=== PATIENT | male | born 1960 | race American Indian/Alaskan Native ===

== ENCOUNTER 2016-12-01 21:26 | Emergency (ER) | payer OTHER ==
[2016-12-01] MEDS ORDERED: PROVENTIL IH ONE (22:50)
--- NOTE | 2016-12-01 22:54 | Emergency Department Report ---
ED Shortness of Breath HPI - General Chief Complaint: Dyspnea/Respdistress Stated Complaint: COUGH X'S 2 WEEKS Time Seen by Provider: 12/01/16 22:43 Source: patient, EMS Mode of arrival: Stretcher Limitations: No Limitations - History of Present Illness Initial Comments: Patient reports persistent cough 2 weeks. He is occasionally getting some chest discomfort due to the coughing. He reports in general being healthy. He states he is a little bit hoarse today because of feeling so much during the football game yesterday. He denies any chest pain associated with cough. EMS did note his blood pressure to be quite elevated. Patient indicates that this has not been a problem in the past however he indicates he does not have a doctor that he follows with. MD Complaint: cough, chest pain (due to cough) Onset/Timin -: week(s) Severity: moderate Pain Scale: 3 Quality: dull Consistency: intermittent Improves With: upright position Worsens With: lying flat Associated Symptoms: chest pain, cough Treatments Prior to Arrival: none - Related Data Previous Rx's Medication Instructions Recorded Last Taken Type ALBUTEROL Inhaler [ProAir HFA 2 puff IH QID PRN #1 inhalation 12/01/16 Unknown Rx Inhaler] Hydrochlorothiazide [HCTZ] 25 mg PO QDAY #30 tablet 12/01/16 Unknown Rx Allergies Allergy/AdvReac Type Severity Reaction Status Date / Time No Known Allergies Allergy Unverified 12/01/16 22:40 ED Review of Systems ROS: Stated complaint: COUGH X'S 2 WEEKS Other details as noted in HPI Constitutional: denies: chills, fever Eyes: denies: eye pain, eye discharge, vision change ENT: throat pain. denies: ear pain Respiratory: cough, shortness of breath. denies: wheezing Cardiovascular: chest pain (when coughing). denies: palpitations Endocrine: no symptoms reported Gastrointestinal: denies: abdominal pain, nausea, diarrhea Genitourinary: denies: urgency, dysuria Musculoskeletal: denies: back pain, joint swelling, arthralgia Skin: denies: rash, lesions Neurological: denies: headache, weakness, paresthesias Psychiatric: denies: anxiety, depression Hematological/Lymphatic: denies: easy bleeding, easy bruising ED Past Medical Hx - Past Medical History Hx Hypertension: Yes - Social History Smoking Status: Current Every Day Smoker Substance Use Type: Alcohol - Medications Home Medications: Home Medications Medication Instructions Recorded Confirmed Last Taken Type ALBUTEROL Inhaler [ProAir HFA 2 puff IH QID PRN #1 inhalation 12/01/16 Unknown Rx Inhaler] Hydrochlorothiazide [HCTZ] 25 mg PO QDAY #30 tablet 12/01/16 Unknown Rx ED Physical Exam - General Limitations: No Limitations General appearance: alert, in no apparent distress - Head Head exam: Present: atraumatic, normocephalic - Eye Eye exam: Present: normal appearance, PERRL. Absent: scleral icterus - ENT ENT exam: Present: normal orophraynx, mucous membranes moist, other (hoarse voice) - Neck Neck exam: Present: normal inspection - Respiratory Respiratory exam: Present: normal lung sounds bilaterally. Absent: respiratory distress - Cardiovascular Cardiovascular Exam: Present: regular rate, normal rhythm. Absent: systolic murmur, diastolic murmur, rubs, gallop - GI/Abdominal GI/Abdominal exam: Present: soft, normal bowel sounds. Absent: tenderness, pulsatile mass - Rectal Rectal exam: Present: deferred - Extremities Exam Extremities exam: Present: normal inspection. Absent: pedal edema, calf tenderness - Back Exam Back exam: Present: normal inspection - Neurological Exam Neurological exam: Present: alert, oriented X3 - Psychiatric Psychiatric exam: Present: normal affect, normal mood - Skin Skin exam: Present: warm, dry, intact, normal color. Absent: rash ED Course Vital Signs 12/01/16 23:08 Temperature 97.6 F - Reevaluation(s) Reevaluation #1: 12/01/16 23:11 Chest x-ray is negative here. Patient subjectively reports improvement after nebulized treatment. I suspect bronchitis clinically. I do feel he needs ongoing medical attention for chronic management. I did encourage smoking cessation. Will start on hydrochlorothiazide for his elevated blood pressure. He does agree to follow up with physician as well as check his blood pressure routinely. ED Medical Decision Making - Radiology Data interpreted by me: Normal cardiac silhouette no mediastinal widening no infiltrate. Critical care attestation.: If time is entered above; I have spent that time in minutes in the direct care of this critically ill patient, excluding procedure time. ED Disposition Clinical Impression: Bronchitis Hypertension Qualifiers: Hypertension type: essential hypertension Qualified Code(s): I10 - Essential ( primary) hypertension Disposition: DISCHARGED TO HOME OR SELFCARE Is pt being admited?: No Does the pt Need Aspirin: No Condition: Stable Instructions: Hypertension (ED), Acute Bronchitis (ED) Additional Instructions: Stop smoking. Follow-up healthy lifestyle. Eat a healthy diet. Be involved in a routine exercise program. Prescriptions: ALBUTEROL Inhaler [ProAir HFA Inhaler] 2 puff IH QID PRN #1 inhalation PRN Reason: Shortness Of Breath Hydrochlorothiazide [HCTZ] 25 mg PO QDAY #30 tablet Referrals: BISHOP NICE MD [Staff Physician] - 3-5 Days Time of Disposition: 23:15
[2016-12-02 00:43] VITALS: BP 157/97
--- NOTE | 2016-12-02 07:35 | XRay Report ---
ROUTINE CHEST, TWO VIEWS: HISTORY: Cough. The trachea, heart, mediastinal contour, lung prasad and bony thorax are unremarkable. IMPRESSION: Unremarkable chest x-ray.
== END 2016-12-02 00:43 | disposition home or self-care (01) ==
LOC: ED 21:26
DX: J40 Bronchitis, not specified as acute or chronic (principal); I10 Essential (primary) hypertension; F17.200 Nicotine dependence, unspecified, uncomplicated
CPT/HCPCS: 71020; 94640